=== PATIENT | female | born 1970 | race Two or more races ===

== ENCOUNTER 2018-10-06 10:07 | Emergency (ER) | payer MEDICARE, OTHER ==
[~2018-10-06] VITALS: Ht 162.6 cm; Wt 77.1 kg
[2018-10-06] MEDS ORDERED: IBUPROFEN 600 MG TABLET PO ONE ×2 (10:53→11:00)
--- NOTE | 2018-10-06 11:00 | NUR ---
patient presented to the ER c/o left knee pain s/p fall. on room air, breathing evenly and unlabored. Kept comfortable, will continue to monitor accordingly.
[2018-10-06 11:47] VITALS: BP 125/81
--- NOTE | 2018-10-06 11:48 | NUR ---
Patient discharged to home in stable condition. Written and verbal after care instructions given. Patient caregiver verbalizes understanding of instruction.
== END 2018-10-06 11:47 | disposition home or self-care (01) ==
LOC: ER 10:13
DX: S80.02XA Contusion of left knee, initial encounter (principal); G80.9 Cerebral palsy, unspecified; F79 Unspecified intellectual disabilities; W18.39XA Other fall on same level, initial encounter; Y93.89 Activity, other specified; Y92.89 Other specified places as the place of occurrence of the external cause; Y99.8 Other external cause status
CPT/HCPCS: 73564-TC